=== PATIENT | male | born 1955 | race Caucasian/White ===

== ENCOUNTER → 2021-03-28 | Outpatient (CLI) | payer BC ==
[2021-03-28 10:22] LABS: HEMOGLOBIN 15.6 gm/dl (14.0-17.5); RED BLOOD COUNT 5.22 M/UL (4.20-5.50); WHITE BLOOD COUNT 4.9 K/UL (4.5-11.0)
[2021-03-29 09:15] LABS: THYROXINE (T4) 7.6 ug/dL (4.5-12.0); TRIIODOTHYRONINE (T3) 173 ng/dL (71-180); VITAMIN D, 25-HYDROXY 29.3 ng/mL (30.0-100.0)
[2021-03-29 10:15] LABS: A/G RATIO 1.3 (1.2-2.2); ALKALINE PHOSPHATASE, S 90 IU/L (44-121); ALT (SGPT) 30 IU/L (0-44); AST (SGOT) 32 IU/L (0-40); BILIRUBIN, TOTAL 0.5 mg/dL (0.0-1.2); BUN 16 mg/dL (8-27); BUN/CREATININE RATIO 16 (10-24); CALCIUM, SERUM 9.1 mg/dL (8.6-10.2); CARBON DIOXIDE, TOTAL 21 mmol/L (20-29); CHLORIDE, SERUM 106 mmol/L (96-106); CHOLESTEROL, TOTAL 163 mg/dL (100-199); CREATININE, SERUM 0.97 mg/dL (0.76-1.27); EGFR IF AFRICN AM 94 (>59); EGFR IF NONAFRICN AM 81 (>59); GLOBULIN, TOTAL 3.2 g/dL (1.5-4.5); GLUCOSE, SERUM 94 mg/dL (65-99); HDL CHOLESTEROL 46 mg/dL (>39); LDL CHOLESTEROL CALC 107 mg/dL (0-99); LDL/HDL RATIO 2.3 ratio (0.0-3.6); POTASSIUM, SERUM 4.9 mmol/L (3.5-5.2); PROTEIN, TOTAL, SERUM 7.3 g/dL (6.0-8.5); SODIUM, SERUM 141 mmol/L (134-144); T. CHOL/HDL RATIO 3.5 ratio (0.0-5.0); TRIGLYCERIDES 47 mg/dL (0-149)
== END ==
LOC: LAB 09:40
PROVIDERS: Nurse Practitioner
DX: Z13.220 Encounter for screening for lipoid disorders (principal); Z12.5 Encounter for screening for malignant neoplasm of prostate; R53.83 Other fatigue; E55.9 Vitamin D deficiency, unspecified
CPT/HCPCS: 36415; 80053; 80061; 81001; 84153; 84436; 84443; 84480; 85025

== ENCOUNTER → 2021-11-10 | Outpatient (CLI) | payer BC, MEDICARE | LOC: RAD 11:21 | DX: Z12.2 Encounter for screening for malignant neoplasm of respiratory organs (principal) | CPT/HCPCS: 71046 ==